=== PATIENT | female | born 1990 | race African-American/Black ===

== ENCOUNTER 2017-07-18 21:11 | Emergency (ER) | payer MEDICARE, MEDICAID ==
[2017-07-18] MEDS ORDERED: NORMAL SALINE 1000 ML 1,000 ML IV ONE (22:38)
[2017-07-18 22:50] LABS: ABSOLUTE MONOCYTES (AUTO) 0.8 10^3/uL (0.1-1.4); ABSOLUTE NEUT (AUTO) 10.2 10^3/uL (1.7-8.2); BASOPHILS % (AUTO) 0.3 % (0-2); HEMATOCRIT 37.7 % (36.0-47.0); HEMOGLOBIN 12.8 g/dL (12.0-15.5); LYMPHOCYTES % (AUTO) 8.4 % (13-45); MEAN CORPUSCULAR HEMOGLOBIN 28.5 pg (27.0-33.4); MEAN CORPUSCULAR VOLUME 84 fl (80-97); MONOCYTES % (AUTO) 6.8 % (3-13); PLATELET COUNT 422 10^3/uL (150-450); RED CELL DISTRIBUTION WIDTH 16.1 % (11.5-14.0); SEGMENTED NEUTROPHILS % (AUTO) 84.5 % (42-78); TOTAL CELLS COUNTED % (AUTO) 100 %; VENOUS BLOOD BASE EXCESS 1.8 mmol/L; VENOUS BLOOD HCO3 25.4 mmol/L (20-32); VENOUS BLOOD PCO2 36.8 mmHg (35-63); VENOUS BLOOD PH 7.46 (7.30-7.42)
[2017-07-18 23:05] LABS: ANION GAP 11 (5-19); BLOOD UREA NITROGEN 11 mg/dL (7-20); CALCIUM 8.8 mg/dL (8.4-10.2); CARBON DIOXIDE 24 mmol/L (22-30); CHLORIDE 96 mmol/L (98-107); CREATINE KINASE 48 U/L (30-135); GLUCOSE 122 mg/dL (75-110); POTASSIUM 4.2 mmol/L (3.6-5.0); SODIUM 131.1 mmol/L (137-145)
--- NOTE | 2017-07-18 23:24 | RADIOLOGY REPORT (SQ) ---
EXAM DESCRIPTION: CHEST SINGLE VIEW COMPLETED DATE/TIME: 07/18/2017 11:02 pm REASON FOR STUDY: cough COMPARISON: Chest x-ray 08/30/2013. EXAM PARAMETERS: NUMBER OF VIEWS: One view. TECHNIQUE: Single frontal radiographic view of the chest acquired. RADIATION DOSE: NA LIMITATIONS: None. FINDINGS: LUNGS AND PLEURA: Airspace opacity at the left perihilar region. No sizable pleural effus ion or pneumothorax. MEDIASTINUM AND HILAR STRUCTURES: No masses. Contour normal. HEART AND VASCULAR STRUCTURES: Heart normal in size. Normal vasculature. BONES: There is thoracolumbar scoliosis. HARDWARE: None in the chest. IMPRESSION: Airspace opacity at the left perihilar region, may represent atelectasis or pneumonia. TECHNICAL DOCUMENTATION: JOB ID: [id number] [employer]- All Rights Reserved
[2017-07-19] MEDS ORDERED: OXCARBAZEPINE 300 MG/5 ML SUSP 250ML/BOTTLE PO ONE (00:57)
[2017-07-19] MEDS ORDERED: LEVETIRACETAM ORAL SOLN 500 MG/5 ML UDCUP PO ONE (00:57)
[2017-07-19] MEDS ORDERED: ACETAMINOPHEN SUSP 160 MG/5 ML ORAL SYRING PO ONE (01:05)
--- NOTE | 2017-07-19 01:06 | ER Document Report ---
ED General - General Chief Complaint: Vomiting Stated Complaint: VOMITING Time Seen by Provider: 07/18/17 21:52 Cannot obtain history due to: Mentally challenged Notes: Patient is a 26-year-old female nonverbal, nonambulatory, contracted at baseline who presents with her guardians with concerns of fever and vomiting. Multiple family members in the home have also been sick. Family is concerned that when the patient vomited today it seemed like the vomitus was black. The patient has not seen her primary doctor regarding today's concerns. Nothing is been noted to improve or worsen her symptoms. Family is uncertain whether or not there is been a history of similar symptoms in the past. The patient is completely nonverbal and unable to provide any additional meaningful history. TRAVEL OUTSIDE OF THE [place] IN LAST 30 DAYS: No - Related Data Allergies/Adverse Reactions: ceftriaxone sodium [From Rocephin] Allergy (Verified 05/11/13 17:21) Past Medical History - Social History Smoking Status: Never Smoker Chew tobacco use (# tins/day): No Frequency of alcohol use: None Drug Abuse: None Family History: Reviewed & Not Pertinent Patient has suicidal ideation: No Patient has homicidal ideation: No Neurological Medical History: Reports: Hx Seizures Renal/ Medical History: Denies: Hx Peritoneal Dialysis GI Medical History: Reports: Hx Ulcer Musculoskeltal Medical History: Reports Hx Muscle Spasm, Reports Hx Muscle Weakness, Reports Hx Musculoskeletal Deformity, Reports Hx Musculoskeletal Trauma Past Surgical History: Reports: Hx Abdominal Surgery - stoma, left side, Hx Colostomy, Hx Orthopedic Surgery - left shoulder, hip, knne - Immunizations Immunizations up to date: Yes Hx Diphtheria, Pertussis, Tetanus Vaccination: Yes Physical Exam - Vital signs Vitals: Pulse Ox 97 07/18/17 21:31 Course - Re-evaluation Re-evalutation: 07/19/17 01:03 Patient presents with fever, vomiting, initially tachycardia which has not improved down to 105 with a liter of fluids. She is nonverbal and unable to voice any specific complaints. Patient is chronically ill, contracted, but in no acute distress. Chest x-ray without any evidence of an acute pneumonia, likely atelectasis based on absence of cough. Labs were otherwise again unremarkable without any significant leukocytosis, evidence of acute kidney injury or elevated lactate. Urinalysis will also be obtained by catheterized specimen. Him is also concerned about a dark colored vomitus at home so we will recheck a CBC to ensure that there has not been any downtrending her hemoglobin. Her ostomy bag does not show any evidence of melena or hematochezia and she has not had any overt hematemesis. If these labs remain reassuring and her heart rate will plan for likely discharge home with close outpatient follow-up. 07/19/17 02:49 Repeat CBC does not show any clinical change in her hemoglobin. Urinalysis is negative for any signs of infection or significant dehydration. Patient's heart rate continues to be quite variable ranging anywhere from 98 to 130 in the span of less than 30 seconds. Getting overall very reassuring assessment, I do not believe there is any indication for IV antibiotics, hospitalization or further workup at this time. At this time will discharge with return precautions and follow-up recommendations. Verbal discharge instructions given a the bedside and opportunity for questions given. Medication warnings reviewed. Guardian is in agreement with this plan and has verbalized understanding of return precautions and the need for primary care follow-up in the next 24-72 hours. - Vital Signs Vital signs: Temp Pulse Resp BP Pulse Ox 100.3 F 17 130/97 H 100 07/19/17 01:50 07/19/17 02:00 07/19/17 01:59 07/19/17 02:00 - Laboratory Result Diagrams: 07/19/17 01:40 07/18/17 22:18 Laboratory results interpreted by me: 07/18/17 07/18/17 07/18/17 22:18 22:18 22:18 WBC 12.0 H RDW 16.1 H Seg Neutrophils % 84.5 H Lymphocytes % 8.4 L Absolute Neutrophils 10.2 H VBG pH 7.46 H Sodium 131.1 L Chloride 96 L Creatinine 0.34 L Glucose 122 H Urine Urobilinogen 07/19/17 07/19/17 01:40 01:54 WBC RDW 15.7 H Seg Neutrophils % Lymphocytes % Absolute Neutrophils VBG pH Sodium Chloride Creatinine Glucose Urine Urobilinogen 4.0 H - Diagnostic Test Radiology reviewed: Image reviewed, Reports reviewed Radiology results interpreted by me: 07/19/17 02:50 Chest x-ray: No acute infiltrate or pneumothorax Discharge - Discharge Clinical Impression: Vomiting Qualifiers: Vomiting type: unspecified Vomiting Intractability: non-intractable Nausea presence: unspecified Qualified Code(s): R11.10 - Vomiting, unspecified Fever Qualifiers: Fever type: unspecified Qualified Code(s): R50.9 - Fever, unspecified Condition: Stable Disposition: HOME, SELF-CARE Additional Instructions: All the labs, imaging, and overall assessment are reassuring today. Please follow-up with her primary doctor as well as her GI physician as we discussed today. Return for any additional symptoms that are concerning to you including change in behavior, persistent vomiting, bleeding into the ostomy, blood in her vomit, apparent shortness of breath or any other symptoms that are worrisome to you.
[2017-07-19] MEDS ORDERED: LEVETIRACETAM ORAL SOLN 500 MG/5 ML UDCUP ONE (01:28)
[2017-07-19] MEDS ORDERED: OXCARBAZEPINE 300 MG/5 ML SUSP 250ML/BOTTLE ONE (01:30)
[2017-07-19 02:00] LABS: HEMATOCRIT 36.1 % (36.0-47.0); HEMOGLOBIN 12.3 g/dL (12.0-15.5); MEAN CORPUSCULAR HEMOGLOBIN 28.4 pg (27.0-33.4); MEAN CORPUSCULAR VOLUME 84 fl (80-97); PLATELET COUNT 361 10^3/uL (150-450); RED BLOOD COUNT 4.32 10^6/uL (3.72-5.28); RED CELL DISTRIBUTION WIDTH 15.7 % (11.5-14.0); WHITE BLOOD COUNT 9.3 10^3/uL (4.0-10.5)
[2017-07-19 02:11] VITALS: BP 130/97
[2017-07-19 02:36] LABS: APPEARANCE,URINE CLEAR; BILIRUBIN,URINE NEGATIVE (NEGATIVE); COLOR,URINE YELLOW; GLUCOSE, URINE NEGATIVE (NEGATIVE); KETONES,URINE NEGATIVE (NEGATIVE); LEUKOCYTE ESTERASE,URINE NEGATIVE (NEGATIVE); NITRITE,URINE NEGATIVE (NEGATIVE); PROTEIN,URINE NEGATIVE (NEGATIVE); URINE SPECIFIC GRAVITY 1.018
== END 2017-07-19 03:36 | disposition home or self-care (01) ==
LOC: ER 21:11
DX: R11.10 Vomiting, unspecified (principal); R50.9 Fever, unspecified; R00.0 Tachycardia, unspecified
CPT/HCPCS: 99284; 96360; 36415; 87086; 82550; 83605; 85025; 85027; 80048; 81001; 82803; 71045; J7030; J3490; A9270